=== PATIENT | male | born 1955 | race Caucasian/White ===

== ENCOUNTER 2019-05-24 17:49 | Emergency (ER) | payer SELFPAY ==
[~2019-05-24] VITALS: Ht 195.6 cm; Wt 90.7 kg
[2019-05-24 17:49] VITALS: BP 139/90
== END 2019-05-24 19:56 | disposition left against medical advice (07) ==
LOC: ER 17:56
DX: F10.10 Alcohol abuse, uncomplicated (principal); I10 Essential (primary) hypertension; Z76.5 Malingerer [conscious simulation]; Z88.0 Allergy status to penicillin; Z59.0 Homelessness; Y90.9 Presence of alcohol in blood, level not specified